=== PATIENT | female | born 1990 | race Caucasian/White ===

== ENCOUNTER 2016-09-20 16:53 | Emergency (ER) | payer SELFPAY ==
[~2016-09-20] VITALS: Ht 160 cm; Wt 52.0 kg
[~2016-09-20 16:53] MED LIST: LORA-474 PO; SUBO8MIS SL; [UNRECOGNIZED DRUG - CODE] TOPICAL
[2016-09-20 17:04] VITALS: BP 129/74; PULSE 125; RESP 16; TEMP 98.8; O2SAT 99
[2016-09-20] MEDS ORDERED: CLINDAMYCIN INJ 900 MG in SODIUM CHLORIDE 0.9% INJ 100 ML IV ONE (18:00)
[2016-09-20] MEDS ORDERED: SODIUM CHLORIDE 0.9% FLUSH 10 ML FLUSH IVF PRN (18:00)
[2016-09-20] MEDS ORDERED: DEXAMETHASONE SOD PHOS 4 MG/ML VIAL IV ONE (18:00)
[2016-09-20] MEDS ORDERED: HYDROmorphone HCL PF 1 MG/ML VIAL IV PUSH ONE (18:00)
[2016-09-20 18:27] LABS: AUTOMATED NEUTROPHIL # 15.5 TH/MM3 (1.8-7.7); BASOPHIL # 0.1 TH/MM3 (0-0.2); BASOPHIL % 0.7 % (0.0-2.0); EOSINOPHIL % 0.1 % (0.0-4.0); HEMATOCRIT 43.9 % (35.0-46.0); LYMPH % 8.3 % (9.0-44.0); LYMPHOCYTE # 1.5 TH/MM3 (1.0-4.8); MEAN CELL VOLUME 91.4 FL (80.0-100.0); MEAN CORPUSCULAR HEMOGLOBIN 30.9 PG (27.0-34.0); MEAN CORPUSCULAR HGB CONC 33.8 % (32.0-36.0); NEUT % 82.9 % (16.0-70.0); PLATELET COUNT 174 TH/MM3 (150-450); RED CELL DISTRIBUTION WIDTH 11.4 % (11.6-17.2); WHITE BLOOD COUNT 18.6 TH/MM3 (4.0-11.0)
--- NOTE | 2016-09-20 18:36 | PD ---
HPI Chief Complaint: ENT Complaint Time Seen by Provider: 17:41 Travel History International Travel<30 days: No Contact w/Intl Traveler<30days: No Traveled to known affect area: No History of Present Illness HPI 26-year-old female arrives to the ER with complaint of sore throat. She's had the sore throat for 3 days. A fever is reported. It's worse with swallowing. No cough. Severity moderate. Timing constant. PFSH Past Medical History Cancer: No Cardiovascular Problems: No Diabetes: No Diminished Hearing: No Hepatitis: No Hiatal Hernia: No Hypertension: No Respiratory: No Integumentary: Yes (PSORIASIS-IN A CLINICAL RESEARCH STUDY-RECEIVING MONTHLY INJECTIONS) Immunizations Current: Yes Seizures: No Thyroid Disease: No ?: Not : 1 Para: 1 Ovarian Cysts: Yes Past Surgical History Gynecologic Surgery: Yes (CYST ON OVARY REMOVED 2 YRS AGO, PID) Other Surgery: No Social History Alcohol Use: No Tobacco Use: Yes (1/ PPD) Substance Use: No Allergies-Medications (Allergen,Severity, Reaction): Coded Allergies: No Known Allergies (Verified , 09/20/16) Reported Meds & Prescriptions Reported Meds & Active Scripts Active Lortab (Hydrocodone-Acetaminophen) 5-325 Mg Tab 1 Tab PO Q6H PRN Clindamycin (Clindamycin HCl) 150 Mg Cap 300 Mg PO Q6H 10 Days Review of Systems Except as stated in HPI: all other systems reviewed are Neg Physical Exam Narrative GENERAL: 26-year-old female well-nourished well-developed SKIN: Focused skin assessment warm/dry. HEAD: Atraumatic. Normocephalic. EYES: Pupils equal and round. No scleral icterus. No injection or drainage. ENT: No nasal bleeding or discharge. Mucous membranes pink and moist. Tonsillar exudates with minimal erythema about the left soft palate. NECK: Trachea midline. No JVD. Anterior neck adenopathy with minimal tenderness is present. CARDIOVASCULAR: Regular rate and rhythm. No murmur appreciated. RESPIRATORY: No accessory muscle use. Clear to auscultation. Breath sounds equal bilaterally. GASTROINTESTINAL: Abdomen soft, non-tender, nondistended. Hepatic and splenic margins not palpable. MUSCULOSKELETAL: No obvious deformities. No clubbing. No cyanosis. No edema. NEUROLOGICAL: Awake and alert. No obvious cranial nerve deficits. Motor grossly within normal limits. Normal speech. PSYCHIATRIC: Appropriate mood and affect; insight and judgment normal. Data Data Last Documented VS Vital Signs Date Time Temp Pulse Resp B/P Pulse Ox O2 Delivery O2 Flow Rate FiO2 09/20/16 17:04 98.8 125 16 129/74 99 Vital signs reviewed Orders Basic Metabolic Panel (Bmp) (09/20/16 17:55) Complete Blood Count With Diff (09/20/16 17:55) Monoscreen (09/20/16 17:55) Ct Soft Tiss Neck W Iv Cont (09/20/16 17:55) Iv Access Insert/Monitor (09/20/16 17:55) Dexamethasone Inj (Decadron Inj) (09/20/16 18:00) Clindamycin Inj (Cleocin Inj) (09/20/16 18:00) Sodium Chloride 0.9% Flush (Ns Flush) (09/20/16 18:00) Hydromorphone Pf Inj (Dilaudid Pf Inj) (09/20/16 18:00) Iohexol 350 Inj (Omnipaque 350 Inj) (09/20/16 18:55) Sodium Chlor 0.9% 1000 Ml Inj (Ns 1000 M (09/20/16 19:45) Group A Rapid Strep Screen (09/20/16 20:13) Strep Culture (Group A) (09/20/16 20:20) Labs Laboratory Tests Test 09/20/16 18:10 White Blood Count 18.6 TH/MM3 Red Blood Count 4.80 MIL/MM3 Hemoglobin 14.8 GM/DL Hematocrit 43.9 % Mean Corpuscular Volume 91.4 FL Mean Corpuscular Hemoglobin 30.9 PG Mean Corpuscular Hemoglobin 33.8 % Concent Red Cell Distribution Width 11.4 % Platelet Count 174 TH/MM3 Mean Platelet Volume 8.3 FL Neutrophils (%) (Auto) 82.9 % Lymphocytes (%) (Auto) 8.3 % Monocytes (%) (Auto) 8.0 % Eosinophils (%) (Auto) 0.1 % Basophils (%) (Auto) 0.7 % Neutrophils # (Auto) 15.5 TH/MM3 Lymphocytes # (Auto) 1.5 TH/MM3 Monocytes # (Auto) 1.5 TH/MM3 Eosinophils # (Auto) 0.0 TH/MM3 Basophils # (Auto) 0.1 TH/MM3 CBC Comment AUTO DIFF Differential Comment AUTO DIFF CONFIRMED Platelet Estimate NORMAL Platelet Morphology Comment NORMAL Red Cell Morphology Comment NORMAL Sodium Level 135 MEQ/L Potassium Level 3.5 MEQ/L Chloride Level 98 MEQ/L Carbon Dioxide Level 27.0 MEQ/L Anion Gap 10 MEQ/L Blood Urea Nitrogen 13 MG/DL Creatinine 0.60 MG/DL Estimat Glomerular Filtration 119 ML/MIN Rate Random Glucose 148 MG/DL Calcium Level 9.0 MG/DL Monoscreen NEG MDM Medical Decision Making Medical Screen Exam Complete: Yes Emergency Medical Condition: Yes Medical Record Reviewed: Yes Differential Diagnosis Streptococcal pharyngitis, viral pharyngitis, OYSTER UNLOADER, retropharyngeal abscess Narrative Course Clindamycin started along with decadron and IVF. CT soft-tissue neck ordered. Pt may gave L OYSTER UNLOADER. Imaging and bloodwork pending at time of dictation. Oncoming provider to follow up CT neck and disposition appropriately. Scripts Hydrocodone-Acetaminophen (Lortab)5-325 Mg Tab1 Tab PO Q6H PRN (PAIN) #10 TAB Ref 0 Prov:Roseanna Shea MD 09/20/16 Clindamycin 150 Mg [id number] Mg PO Q6H 10 Days Ref 0 Prov:Roseanna Shea MD 09/20/16 Zach Zuniga MD Sep 20, 2016 18:36
[2016-09-20 18:46] LABS: POTASSIUM 3.5 MEQ/L (3.5-5.1)
[2016-09-20 18:49] LABS: HEMO FLAGS AUTO DIFF
[2016-09-20] MEDS ORDERED: IOHEXOL 350 MG/ML 10 ML VIAL (for RAD DIAG) IV ONE (18:55)
--- NOTE | 2016-09-20 19:05 | RADRPT ---
EXAM DATE/TIME: 09/20/2016 18:34 [facility] COMPARISON: No previous studies available for comparison. INDICATIONS : Sore throat and bilateral palpable lumps in neck. IV CONTRAST: 75 cc Omnipaque 350 (iohexol) IV RADIATION DOSE: 11.45 CTDIvol (mGy) MEDICAL HISTORY : None SURGICAL HISTORY : None. ENCOUNTER: Initial ACUITY: 3 days PAIN SCALE: 3/10 LOCATION: Bilateral neck TECHNIQUE: Volumetric scanning of the neck was performed. Using automated exposure control and adjustment of th e mA and/or kV according to patient size, radiation dose was kept as low as reasonably achievable to obtain optimal diagnostic quality images. DICOM format image data is available electronically for r eview and comparison. FINDINGS: The tonsils are enlarged bilaterally, slightly larger on the right. Adenoidal tissue is also mildly p rominent. The palpable abnormalities correlate with enlarged upper cervical lymph nodes measuring up to 1.2 cm on the right and 1.4 cm on the left. No airway obstructing lesions or foreign bodies. No ac gambell bony abnormalities. CONCLUSION: Enlarged palatine tonsils bilaterally. Waldeyer's ring is prominent. Palpable abnormalities correlate with mildly enlarged bilateral cervical lymph nodes. Findings probably inflammatory in nature but et iology is unclear. Travis Castrejon MD on September 20, 2016 at 18:58 Board Certified Radiologist. This report was verified electronically.
--- NOTE | 2016-09-20 19:08 | PD ---
Physical Exam Narrative CANCEL --duplicate Data Data Last Documented VS Vital Signs Date Time Temp Pulse Resp B/P Pulse Ox O2 Delivery O2 Flow Rate FiO2 09/20/16 17:04 98.8 125 16 129/74 99 Orders Basic Metabolic Panel (Bmp) (09/20/16 17:55) Complete Blood Count With Diff (09/20/16 17:55) Monoscreen (09/20/16 17:55) Ct Soft Tiss Neck W Iv Cont (09/20/16 17:55) Iv Access Insert/Monitor (09/20/16 17:55) Dexamethasone Inj (Decadron Inj) (09/20/16 18:00) Clindamycin Inj (Cleocin Inj) (09/20/16 18:00) Sodium Chloride 0.9% Flush (Ns Flush) (09/20/16 18:00) Hydromorphone Pf Inj (Dilaudid Pf Inj) (09/20/16 18:00) Iohexol 350 Inj (Omnipaque 350 Inj) (09/20/16 18:55) Sodium Chlor 0.9% 1000 Ml Inj (Ns 1000 M (09/20/16 19:45) Group A Rapid Strep Screen (09/20/16 20:13) Strep Culture (Group A) (09/20/16 20:20) Labs Laboratory Tests Test 09/20/16 18:10 White Blood Count 18.6 TH/MM3 Red Blood Count 4.80 MIL/MM3 Hemoglobin 14.8 GM/DL Hematocrit 43.9 % Mean Corpuscular Volume 91.4 FL Mean Corpuscular Hemoglobin 30.9 PG Mean Corpuscular Hemoglobin 33.8 % Concent Red Cell Distribution Width 11.4 % Platelet Count 174 TH/MM3 Mean Platelet Volume 8.3 FL Neutrophils (%) (Auto) 82.9 % Lymphocytes (%) (Auto) 8.3 % Monocytes (%) (Auto) 8.0 % Eosinophils (%) (Auto) 0.1 % Basophils (%) (Auto) 0.7 % Neutrophils # (Auto) 15.5 TH/MM3 Lymphocytes # (Auto) 1.5 TH/MM3 Monocytes # (Auto) 1.5 TH/MM3 Eosinophils # (Auto) 0.0 TH/MM3 Basophils # (Auto) 0.1 TH/MM3 CBC Comment AUTO DIFF Differential Comment AUTO DIFF CONFIRMED Platelet Estimate NORMAL Platelet Morphology Comment NORMAL Red Cell Morphology Comment NORMAL Sodium Level 135 MEQ/L Potassium Level 3.5 MEQ/L Chloride Level 98 MEQ/L Carbon Dioxide Level 27.0 MEQ/L Anion Gap 10 MEQ/L Blood Urea Nitrogen 13 MG/DL Creatinine 0.60 MG/DL Estimat Glomerular Filtration 119 ML/MIN Rate Random Glucose 148 MG/DL Calcium Level 9.0 MG/DL Monoscreen NEG MDM Medical Record Reviewed: Yes Supervised Visit with NELLIE: No Differential Diagnosis CANCEL --duplicate Narrative Course CANCEL --duplicate Additional Instruction: CANCEL --duplicate Scripts Hydrocodone-Acetaminophen (Lortab)5-325 Mg Tab1 Tab PO Q6H PRN (PAIN) #10 TAB Ref 0 Prov:Roseanna Shea MD 09/20/16 Clindamycin 150 Mg [id number] Mg PO Q6H 10 Days Ref 0 Prov:Roseanna Shea MD 09/20/16 Roseanna Shea MD Sep 20, 2016 19:08
--- NOTE | 2016-09-20 19:12 | PD ---
Physical Exam Date Seen by Provider: Sep 20, 2016 Narrative accepted in transfer of care from Dr Zuniga GENERAL: Well-developed well-nourished female in no acute distress no respiratory distress no stridor no hoarseness SKIN: Warm and dry. ENT: Airway is patent mucous membranes moist bilateral tonsillar edema with exudative change no palpable soft tissue edema or erythema or fluctuance. Data Data Last Documented VS Vital Signs Date Time Temp Pulse Resp B/P Pulse Ox O2 Delivery O2 Flow Rate FiO2 09/20/16 17:04 98.8 125 16 129/74 99 Orders Basic Metabolic Panel (Bmp) (09/20/16 17:55) Complete Blood Count With Diff (09/20/16 17:55) Monoscreen (09/20/16 17:55) Ct Soft Tiss Neck W Iv Cont (09/20/16 17:55) Iv Access Insert/Monitor (09/20/16 17:55) Dexamethasone Inj (Decadron Inj) (09/20/16 18:00) Clindamycin Inj (Cleocin Inj) (09/20/16 18:00) Sodium Chloride 0.9% Flush (Ns Flush) (09/20/16 18:00) Hydromorphone Pf Inj (Dilaudid Pf Inj) (09/20/16 18:00) Iohexol 350 Inj (Omnipaque 350 Inj) (09/20/16 18:55) Sodium Chlor 0.9% 1000 Ml Inj (Ns 1000 M (09/20/16 19:45) Labs Laboratory Tests Test 09/20/16 18:10 White Blood Count 18.6 TH/MM3 Red Blood Count 4.80 MIL/MM3 Hemoglobin 14.8 GM/DL Hematocrit 43.9 % Mean Corpuscular Volume 91.4 FL Mean Corpuscular Hemoglobin 30.9 PG Mean Corpuscular Hemoglobin 33.8 % Concent Red Cell Distribution Width 11.4 % Platelet Count 174 TH/MM3 Mean Platelet Volume 8.3 FL Neutrophils (%) (Auto) 82.9 % Lymphocytes (%) (Auto) 8.3 % Monocytes (%) (Auto) 8.0 % Eosinophils (%) (Auto) 0.1 % Basophils (%) (Auto) 0.7 % Neutrophils # (Auto) 15.5 TH/MM3 Lymphocytes # (Auto) 1.5 TH/MM3 Monocytes # (Auto) 1.5 TH/MM3 Eosinophils # (Auto) 0.0 TH/MM3 Basophils # (Auto) 0.1 TH/MM3 CBC Comment AUTO DIFF Differential Comment AUTO DIFF CONFIRMED Platelet Estimate NORMAL Platelet Morphology Comment NORMAL Red Cell Morphology Comment NORMAL Sodium Level 135 MEQ/L Potassium Level 3.5 MEQ/L Chloride Level 98 MEQ/L Carbon Dioxide Level 27.0 MEQ/L Anion Gap 10 MEQ/L Blood Urea Nitrogen 13 MG/DL Creatinine 0.60 MG/DL Estimat Glomerular Filtration 119 ML/MIN Rate Random Glucose 148 MG/DL Calcium Level 9.0 MG/DL Monoscreen NEG MDM Medical Record Reviewed: Yes Supervised Visit with NELLIE: No Interpretation(s) CBC & BMP Diagram 09/20/16 18:10 Vital Signs Date Time Temp Pulse Resp B/P Pulse Ox O2 Delivery O2 Flow Rate FiO2 09/20/16 17:04 98.8 125 16 129/74 99 mono spot: negative Differential Diagnosis accepted in transfer of care from Dr Zuniga Narrative Course accepted in transfer of care from Dr Zuniga At 7:40 PM patient is clinically improved eating soup at bedside; CT imaging does not identify any obvious abscess; patient reports that she is symptomatically improved. Diagnosis Primary Impression: Acute tonsillitis Referrals: Primary Care Physician 2 days Patient Instructions: General Instructions Departure Forms: Tests/Procedures, Work Release Special Instructions: no work x 2 days Additional Instruction: Increase fluid hydration Follow clear liquid diet for next 12-24 hours advance as tolerated soft diet then to to bland/Henny diet then regular diet No work 2 days Monitor temperature every 4 hours with thermometer and take acetaminophen/ Tylenol every 4 hours as needed for fever 100.4F or greater May take ibuprofen/Advil/Motrin 400-600 mg as often as every 6 hours for fever 100.4F or greater or for pain associated with inflammation Follow-up with primary care provider Return to the emergency department for any change in condition or worsening symptoms Med/Other Pt SpecificInfo: Prescription(s) given Scripts Hydrocodone-Acetaminophen (Lortab)5-325 Mg Tab1 Tab PO Q6H PRN (PAIN) #10 TAB Ref 0 Prov:Roseanna Shea MD 09/20/16 Clindamycin 150 Mg [id number] Mg PO Q6H 10 Days Ref 0 Prov:Roseanna Shea MD 09/20/16 Disposition: 01 DISCHARGE HOME Condition: Stable Roseanna Shea MD Sep 20, 2016 19:12
[2016-09-20 19:42] LABS: PLATELET ESTIMATE SMEAR NORMAL (NORMAL); PLATELET MORPHOLOGY NORMAL (NORMAL); SCAN/DIFF AUTO DIFF CONFIRMED
[2016-09-20] MEDS ORDERED: SODIUM CHLOR 0.9% 1000 ML INJ 1,000 ML IV ONE (19:45)
[2016-09-20] MEDS ORDERED: CLIN1CAP5 PO (20:15)
[2016-09-20] MEDS ORDERED: HYDR-3533 PO (20:15)
== END 2016-09-20 20:31 | disposition home or self-care (01) ==
LOC: PHED 16:53 → PHEFT 20:31
DX: J03.90 Acute tonsillitis, unspecified (principal); R50.9 Fever, unspecified; F17.200 Nicotine dependence, unspecified, uncomplicated; Z87.2 Personal history of diseases of the skin and subcutaneous tissue
CPT/HCPCS: 70491; 80048; 85025; 86308; 87081; 87880; 96365; 96375; 99285; J1100; J1170; J7030; Q9967

== ENCOUNTER 2016-11-24 22:57 | Emergency (ER) | payer MEDICAID ==
[~2016-11-24] VITALS: Ht 160 cm; Wt 54.0 kg
[~2016-11-24 22:57] MED LIST changes: +CLIN1CAP5 PO; +HYDR-3533 PO; -LORA-474 PO; -SUBO8MIS SL; -[UNRECOGNIZED DRUG - CODE] TOPICAL
[2016-11-24 23:01] VITALS: BP 116/75; PULSE 110; RESP 16; TEMP 97.8; O2SAT 98
--- NOTE | 2016-11-24 23:53 | PD ---
HPI Chief Complaint: Injury Time Seen by Provider: 23:47 Travel History International Travel<30 days: No Contact w/Intl Traveler<30days: No Traveled to known affect area: No History of Present Illness HPI 18-year-old female here for evaluation of right ankle and foot pain. The patient rolled her ankle while chasing after her son and going down stairs. She reports that she heard a snap in her right foot/ankle. She is unable to bear weight secondary to pain. She denies any other injuries. Pain is severe, constant, worse with movement and palpation. PFSH Past Medical History Cancer: No Cardiovascular Problems: No Diabetes: No Diminished Hearing: No Hepatitis: No Hiatal Hernia: No Hypertension: No Respiratory: No Integumentary: Yes (PSORIASIS-IN A CLINICAL RESEARCH STUDY-RECEIVING MONTHLY INJECTIONS) Immunizations Current: Yes Seizures: No Thyroid Disease: No Influenza Vaccination: No ?: Not LMP: 11/03/16 : 1 Para: 1 Ovarian Cysts: Yes Past Surgical History Gynecologic Surgery: Yes (CYST ON OVARY REMOVED 2 YRS AGO, PID) Other Surgery: No Social History Alcohol Use: No Tobacco Use: Yes (/2 PPD) Substance Use: No Allergies-Medications (Allergen,Severity, Reaction): Coded Allergies: No Known Allergies (Verified , 11/25/16) Reported Meds & Prescriptions Reported Meds & Active Scripts Active No Active Prescriptions or Reported Medications Review of Systems Except as stated in HPI: all other systems reviewed are Neg Physical Exam Narrative GENERAL: Well-developed, well-nourished, no apparent distress. SKIN: Focused skin assessment warm/dry. Right lateral/plantar aspect/heel of foot with diffuse ecchymosis. No lacerations or abrasions. HEAD: Atraumatic. Normocephalic. EYES: Pupils equal and round. No scleral icterus. No injection or drainage. ENT: Mucous membranes pink and moist. NECK: Trachea midline. No JVD. CARDIOVASCULAR: Regular rate and rhythm. Bilateral dorsalis pedis pulses are brisk and equal. RESPIRATORY: No accessory muscle use. Clear to auscultation. Breath sounds equal bilaterally. MUSCULOSKELETAL: Right foot/ankle with diffuse swelling with skin exam as above with diffuse tenderness and limited range of motion secondary to pain. No right proximal fibular tenderness. The respiratory joints and extremities are without deformity, without tenderness, with normal range of motion. NEUROLOGICAL: Awake and alert. No obvious cranial nerve deficits. Motor grossly within normal limits. Normal speech. PSYCHIATRIC: Appropriate mood and affect; insight and judgment normal. Data Data Last Documented VS Vital Signs Date Time Temp Pulse Resp B/P (MAP) Pulse Ox O2 Delivery O2 Flow Rate FiO2 11/25/16 00:35 90 16 124/77 (93) 100 Room Air 11/24/16 23:01 97.8 Orders Orders Ankle, Complete ([id number]) (11/24/16 ) Foot, Complete ([id number]) (11/24/16 ) Tibia/Fibula (Ap/Lat) (11/24/16 ) Basic Metabolic Panel (Bmp) (11/24/16 23:49) Beta Hcg (Quant/Titer) (11/24/16 23:49) Complete Blood Count With Diff (11/24/16 23:49) Prothrombin Time / Inr (Pt) (11/24/16 23:49) Act Partial Throm Time (Ptt) (11/24/16 23:49) Iv Access Insert/Monitor (11/24/16 23:49) Ecg Monitoring (11/24/16 23:49) Oximetry (11/24/16 23:49) Sodium Chloride 0.9% Flush (Ns Flush) (11/25/16 00:00) Morphine Inj (Morphine Inj) (11/25/16 00:00) Splint Or Brace Apply/Monitor (11/25/16 01:04) Crutches (11/25/16 01:04) Potassium Chloride (Kcl) (11/25/16 01:15) Mandatory Outpatient Referral (11/25/16 01:13) Labs Laboratory Tests Test 11/25/16 00:00 White Blood Count 13.0 TH/MM3 Red Blood Count 4.60 MIL/MM3 Hemoglobin 14.4 GM/DL Hematocrit 42.4 % Mean Corpuscular Volume 92.2 FL Mean Corpuscular Hemoglobin 31.4 PG Mean Corpuscular Hemoglobin Concent 34.0 % Red Cell Distribution Width 12.7 % Platelet Count 243 TH/MM3 Mean Platelet Volume 8.2 FL Neutrophils (%) (Auto) 61.2 % Lymphocytes (%) (Auto) 30.6 % Monocytes (%) (Auto) 6.9 % Eosinophils (%) (Auto) 0.7 % Basophils (%) (Auto) 0.6 % Neutrophils # (Auto) 7.9 TH/MM3 Lymphocytes # (Auto) 4.0 TH/MM3 Monocytes # (Auto) 0.9 TH/MM3 Eosinophils # (Auto) 0.1 TH/MM3 Basophils # (Auto) 0.1 TH/MM3 CBC Comment DIFF FINAL Differential Comment Prothrombin Time 10.1 SEC Prothromb Time International Ratio 0.9 RATIO Activated Partial Thromboplast Time 25.2 SEC Blood Urea Nitrogen 14 MG/DL Creatinine 0.68 MG/DL Random Glucose 70 MG/DL Calcium Level 8.8 MG/DL Sodium Level 140 MEQ/L Potassium Level 3.1 MEQ/L Chloride Level 105 MEQ/L Carbon Dioxide Level 27.7 MEQ/L Anion Gap 7 MEQ/L Estimat Glomerular Filtration Rate 103 ML/MIN Human Chorionic Gonadotropin, Quant LESS THAN 1 MIU/ML MDM Medical Decision Making Medical Screen Exam Complete: Yes Emergency Medical Condition: Yes Differential Diagnosis Right foot/ankle fracture versus contusion versus sprain Narrative Course Vital signs reviewed. CBC is unremarkable. BMP is remarkable for potassium 3.1. Right foot x-ray: No acute fracture or dislocation. Right ankle x-ray: FINDINGS: There is a slightly obliquely oriented longitudinal fracture involving the right lateral malleolus extending to near the joint surface. The tibia appears intact. Talar dome appears intact. Joint spaces are maintained. Soft tissue swelling noted overlying the lateral ankle. Right tib-fib x-ray: CONCLUSION: 1. Right lateral malleolus fracture. Patient will be placed in a Haro splint and will be provided crutches. She was made aware of x-ray findings and was provided a copy. I stressed the importance of follow-up as an outpatient with orthopedist in a week for repeat x -rays and possibly casting. A mandatory referral was also placed for outpatient orthopedic follow-up. She was informed on when to return to the emergency department. She verbalizes understanding and agreement with plan. Diagnosis Primary Impression: Fracture of right ankle, lateral malleolus Qualified Codes: S82.64XA - Nondisplaced fracture of lateral malleolus of right fibula, initial encounter for closed fracture Referrals: Lio Mistry MD 1 week Orthopedist Additional Instructions: Follow-up with orthopedic surgeon Dr. Mistry or an orthopedic surgeon of your choice this week. Return to the emergency department for worsening symptoms or any other concerns. Scripts Oxycodone-Acetaminophen (Percocet) 5-325 mg Tab 1 TAB PO Q6H Y for PAIN, #15 TAB 0 Refills Prov: Chris Ross MD 11/25/16 Disposition: 01 DISCHARGE HOME Condition: Stable Chris Ross MD Nov 24, 2016 23:53
[2016-11-24 23:55] VITALS: RESP 18; O2SAT 100
[2016-11-25] VITALS: BP 113/81; PULSE 93; RESP 16; O2SAT 100
[2016-11-25] MEDS ORDERED: MORPHINE SULFATE 4 MG/ML INJ IV PUSH ONE
[2016-11-25] MEDS ORDERED: SODIUM CHLORIDE 0.9% FLUSH 10 ML FLUSH IV FLUSH PRN
[2016-11-25 00:18] LABS: AUTOMATED NEUTROPHIL # 7.9 TH/MM3 (1.8-7.7); BASOPHIL # 0.1 TH/MM3 (0-0.2); BASOPHIL % 0.6 % (0.0-2.0); EOSINOPHIL # 0.1 TH/MM3 (0-0.4); EOSINOPHIL % 0.7 % (0.0-4.0); HEMATOCRIT 42.4 % (35.0-46.0); HEMO FLAGS DIFF FINAL; LYMPH % 30.6 % (9.0-44.0); MEAN CELL VOLUME 92.2 FL (80.0-100.0); MEAN CORPUSCULAR HEMOGLOBIN 31.4 PG (27.0-34.0); MONO % 6.9 % (0.0-8.0); NEUT % 61.2 % (16.0-70.0); PLATELET COUNT 243 TH/MM3 (150-450); RED CELL DISTRIBUTION WIDTH 12.7 % (11.6-17.2)
[2016-11-25 00:20] LABS: CHLORIDE 105 MEQ/L (98-107); POTASSIUM 3.1 MEQ/L (3.5-5.1); SODIUM (NA) 140 MEQ/L (136-145)
[2016-11-25 00:23] LABS: ANION GAP 7 MEQ/L (5-15); BICARBONATE 27.7 MEQ/L (21.0-32.0); BLOOD UREA NITROGEN 14 MG/DL (7-18)
[2016-11-25 00:26] LABS: GLOMERULAR FILTRATION RATE 103 ML/MIN (>89)
[2016-11-25 00:31] LABS: BETA HCG QUANT LESS THAN 1 MIU/ML (0-5)
[2016-11-25 00:35] VITALS: BP 124/77; PULSE 90; RESP 16; O2SAT 100
--- NOTE | 2016-11-25 00:43 | RADRPT ---
EXAM DATE/TIME: 11/25/2016 00:26 [facility] COMPARISON: No previous studies available for comparison. INDICATIONS : Right ankle pain after tripping over a toy and falling. MEDICAL HISTORY : None. SURGICAL HISTORY : None. ENCOUNTER: Initial ACUITY: 1 day PAIN SCORE: 10/10 LOCATION: Right lateral ankle FINDINGS: There is a slightly obliquely oriented longitudinal fracture involving the right lateral malleolus ex tending to near the joint surface. The tibia appears intact. Talar dome appears intact. Joint spaces are maintained. Soft tissue swelling noted overlying the lateral ankle. CONCLUSION: Right lateral malleolus fracture, as above. Sundar Amaya MD on November 25, 2016 at 0:40 Board Certified Radiologist. This report was verified electronically.
[2016-11-25 00:45] LABS: APTT (PATIENT) 25.2 SEC (24.3-30.1); INTERNATIONAL NORMALIZED RATIO 0.9 RATIO; PROTHROMBIN TIME - PATIENT 10.1 SEC (9.8-11.6)
--- NOTE | 2016-11-25 00:54 | RADRPT ---
EXAM DATE/TIME: 11/25/2016 00:21 [facility] COMPARISON: No previous studies available for comparison. INDICATIONS : Right foot pain after tripping over a toy and falling. MEDICAL HISTORY : None. SURGICAL HISTORY : None. ENCOUNTER: Initial ACUITY: 1 day PAIN SCORE: 8/10 LOCATION: Right lateral foot. FINDINGS: Three view examination of the right foot demonstrates no soft tissue swelling, dislocation, or fractu re. The tarsal bones appear intact. The interphalangeal and metatarsophalangeal joints are intact. The calcaneus is intact. Bony mineralization is normal. CONCLUSION: 1. No acute fracture or dislocation. Sundar Amaya MD on November 25, 2016 at 0:52 Board Certified Radiologist. This report was verified electronically.
--- NOTE | 2016-11-25 00:56 | RADRPT ---
EXAM DATE/TIME: 11/25/2016 00:24 [facility] COMPARISON: No previous studies available for comparison. INDICATIONS : Right lower leg pain after tripping over a toy and falling. MEDICAL HISTORY : None. SURGICAL HISTORY : None. ENCOUNTER: Initial ACUITY: 1 day PAIN SCORE: 10/10 LOCATION: Right lateral distal lower leg. FINDINGS: Obliquely oriented longitudinal fracture involving the right lateral malleolus. Remaining visualized osseous structures appear intact. Joint spaces are grossly maintained. Soft tissue swelling overlying the right lateral right ankle. CONCLUSION: 1. Right lateral malleolus fracture. Sundar Amaya MD on November 25, 2016 at 0:53 Board Certified Radiologist. This report was verified electronically.
[2016-11-25] MEDS ORDERED: POTASSIUM CHLORIDE 20 MEQ CONTROLLED RELEASE TAB PO ONE (01:15)
[2016-11-25] MEDS ORDERED: PERC5TAB12 PO (01:20)
[2016-11-25 01:35] VITALS: BP 122/78; PULSE 89; RESP 16; O2SAT 100
== END 2016-11-25 01:48 | disposition home or self-care (01) ==
LOC: PHED 22:57
DX: S82.64XA Nondisplaced fracture of lateral malleolus of right fibula, initial encounter for closed fracture (principal); F17.210 Nicotine dependence, cigarettes, uncomplicated; X50.1XXA Overexertion from prolonged static or awkward postures, initial encounter; Y93.02 Activity, running; Y99.8 Other external cause status
CPT/HCPCS: 29515; 73590; 73610; 73630; 80048; 84702; 85025; 85610; 85730; 96374; 99284; E0113; J2270

== ENCOUNTER 2016-12-01 23:46 | Emergency (ER) | payer MEDICAID ==
[~2016-12-01] VITALS: Ht 160 cm; Wt 53.7 kg
[~2016-12-01 23:46] MED LIST changes: -CLIN1CAP5 PO; -HYDR-3533 PO; +PERC5TAB12 PO
[2016-12-01 23:53] VITALS: BP 113/68; PULSE 103; RESP 16; TEMP 98.5; O2SAT 98
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
[2016-12-02 01:04] VITALS: BP 116/71; PULSE 96; RESP 18; O2SAT 98
== END 2016-12-02 01:11 | disposition home or self-care (01) ==
LOC: PHED 23:46
DX: S82.891A Other fracture of right lower leg, initial encounter for closed fracture (principal); X58.XXXA Exposure to other specified factors, initial encounter
CPT/HCPCS: 29515; 99283; E0113

== ENCOUNTER 2016-12-08 16:34 | Emergency (ER) | payer SELFPAY ==
[~2016-12-08] VITALS: Ht 160 cm; Wt 60.0 kg
[2016-12-08 16:36] VITALS: BP 113/80; PULSE 91; RESP 16; TEMP 97.9; O2SAT 97
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
== END 2016-12-08 18:03 | disposition home or self-care (01) ==
LOC: NEPK 16:34
DX: S82.61XS Displaced fracture of lateral malleolus of right fibula, sequela (principal); F17.200 Nicotine dependence, unspecified, uncomplicated; X50.1XXS Overexertion from prolonged static or awkward postures, sequela
CPT/HCPCS: 29515; 73610

== ENCOUNTER 2017-05-22 05:52 | Emergency (ER) | payer OTHER ==
[~2017-05-22] VITALS: Ht 160 cm; Wt 56.3 kg
[2017-05-22 05:58] VITALS: BP 120/78; PULSE 111; RESP 14; TEMP 97.9; O2SAT 99
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
[2017-05-22] MEDS ORDERED: IBUPROFEN 600 MG TAB PO ONE (06:45)
[2017-05-22] MEDS ORDERED: traMADol HCL 50 MG TAB PO ONE (06:45)
[2017-05-22 06:55] VITALS: BP 107/69; PULSE 104; RESP 16; TEMP 98.1; O2SAT 99
== END 2017-05-22 07:20 | disposition home or self-care (01) ==
LOC: PHED 05:52
DX: T14.8XXA Other injury of unspecified body region, initial encounter (principal); S09.90XA Unspecified injury of head, initial encounter; V09.00XA Pedestrian injured in nontraffic accident involving unspecified motor vehicles, initial encounter; L40.9 Psoriasis, unspecified; F17.200 Nicotine dependence, unspecified, uncomplicated; F12.90 Cannabis use, unspecified, uncomplicated
CPT/HCPCS: 99283

== ENCOUNTER 2017-07-02 02:08 | Emergency (ER) | payer OTHER ==
[~2017-07-02] VITALS: Ht 160 cm; Wt 58.0 kg
[2017-07-02 02:08] VITALS: BP 104/69; PULSE 92; RESP 20; O2SAT 96
[2017-07-02 02:15] VITALS: BP 129/79; PULSE 110; RESP 20; TEMP 97.8; O2SAT 99
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
--- NOTE | 2017-07-02 04:39 | RADRPT ---
EXAM DATE/TIME: 07/02/2017 04:03 [facility] COMPARISON: No previous studies available for comparison. INDICATIONS : Right hip pain post fall off skateboard today MEDICAL HISTORY : None. SURGICAL HISTORY : None. ENCOUNTER: Initial ACUITY: 1 day PAIN SCORE: 10/10 LOCATION: Right entire hip FINDINGS: Examination of the right hip was performed with AP Pelvis. The primary and secondary trabecular guanaco em of the femoral neck is intact. The hip joint is of normal width without significant sclerosis or bony hypertrophy. The acetabulum is grossly intact. CONCLUSION: Unremarkable examination of the right hip. Florencio Barclay MD on July 02, 2017 at 4:36 Board Certified Radiologist. This report was verified electronically.
--- NOTE | 2017-07-02 04:40 | RADRPT ---
EXAM DATE/TIME: 07/02/2017 04:03 [facility] COMPARISON: No previous studies available for comparison. INDICATIONS : Right shoulder pain post fall from skateboard today MEDICAL HISTORY : None. SURGICAL HISTORY : None. ENCOUNTER: Initial ACUITY: 1 day PAIN SCORE: 10/10 LOCATION: Right entire shoulder FINDINGS: Multiple view examination of the right shoulder demonstrates no evidence of fracture or dislocation. The glenohumeral and acromioclavicular joints are maintained. There is normal range of motion betwe en internal and external rotation. Bony mineralization is normal. CONCLUSION: Unremarkable examination of the right shoulder. Florencio Barclay MD on July 02, 2017 at 4:37 Board Certified Radiologist. This report was verified electronically.
--- NOTE | 2017-07-02 04:48 | RADRPT ---
EXAM DATE/TIME: 07/02/2017 04:18 [facility] COMPARISON: No previous studies available for comparison. INDICATIONS : Trauma. Skateboard accident. RADIATION DOSE: 49.83 CTDIvol (mGy) MEDICAL HISTORY : None SURGICAL HISTORY : None. ENCOUNTER: Initial ACUITY: 1 day PAIN SCALE: 8/10 LOCATION: cranial TECHNIQUE: Multiple contiguous axial images were obtained of the head. Using automated exposure control and adj ustment of the mA and/or kV according to patient size, radiation dose was kept as low as reasonably a chievable to obtain optimal diagnostic quality images. DICOM format image data is available electro nically for review and comparison. FINDINGS: CEREBRUM: The ventricles are normal for age. No evidence of midline shift, mass lesion, hemorrhage or acute in farction. No extra-axial fluid collections are seen. POSTERIOR FOSSA: The cerebellum and brainstem are intact. The 4th ventricle is midline. The cerebellopontine angle i s unremarkable. EXTRACRANIAL: The visualized portion of the orbits is intact. SKULL: The calvaria is intact. No evidence of skull fracture. CONCLUSION: Normal examination. Florencio Barclay MD on July 02, 2017 at 4:45 Board Certified Radiologist. This report was verified electronically.
--- NOTE | 2017-07-02 04:51 | RADRPT ---
EXAM DATE/TIME: 07/02/2017 04:18 [facility] COMPARISON: No previous studies available for comparison. INDICATIONS : Trauma. Skateboard accident. RADIATION DOSE: 22.69 CTDIvol (mGy) MEDICAL HISTORY : None SURGICAL HISTORY : None. ENCOUNTER: Initial ACUITY: 1 day PAIN SCALE: 8/10 LOCATION: neck TECHNIQUE: Volumetric scanning of the cervical spine was performed. Multiplanar reconstructions in the sagittal, coronal and oblique axial planes were performed. Using automated exposure control and adjustment o f the mA and/or kV according to patient size, radiation dose was kept as low as reasonably achievable to obtain optimal diagnostic quality images. DICOM format image data is available electronically f or review and comparison. FINDINGS: The alignment is normal. There is no evidence of cervical spine fracture. No bony canal or foraminal stenosis is identified. There is no evidence of paraspinal hematoma. There appear to be mild broad do rsal disc protrusions at the C4-5 and C5-6 levels. CONCLUSION: No acute bony injury in the cervical spine. Florencio Barclay MD on July 02, 2017 at 4:47 Board Certified Radiologist. This report was verified electronically.
[2017-07-02 06:45] VITALS: BP 108/53
== END 2017-07-02 06:54 | disposition home or self-care (01) ==
LOC: PHED 02:08
DX: S09.90XA Unspecified injury of head, initial encounter (principal); S16.1XXA Strain of muscle, fascia and tendon at neck level, initial encounter; S00.81XA Abrasion of other part of head, initial encounter; S40.211A Abrasion of right shoulder, initial encounter; S50.812A Abrasion of left forearm, initial encounter; S70.211A Abrasion, right hip, initial encounter; V00.131A Fall from skateboard, initial encounter; Y93.51 Activity, roller skating (inline) and skateboarding; Y92.89 Other specified places as the place of occurrence of the external cause; F17.210 Nicotine dependence, cigarettes, uncomplicated
CPT/HCPCS: 70450; 72125; 73030; 73502; 99284